=== PATIENT | female | born 1960 | race African-American/Black ===

== ENCOUNTER 2017-04-29 10:23 | Emergency (ER) | payer MEDICAID ==
[~2017-04-29] VITALS: Ht 157.5 cm; Wt 72.6 kg
[2017-04-29] MEDS ORDERED: CLINDAMYCIN HC300 MG ORAL (11:01)
[2017-04-29 11:11] VITALS: BP 112/70
--- NOTE | 2017-04-30 07:15 | Emergency Room Report ---
History of Present Illness General Chief Complaint: Upper Extremity Injury Source: Patient Present Illness HPI Patient presents with complaints of right index fingertip discomfort Patient reports that she had noticed the area was red and mildly swollen tender to touch however earlier she bumped it into a cabinet sure which worsened the discomfort Does not feel that it is broken Patient had her nails done 3 weeks ago Denies any fevers or chills denies any discharge Pain is 4/10 worse with touch tip of the right index finger Allergies: Coded Allergies: PENICILLINS (Verified Allergy, Unknown, 04/29/17) Patient History Past Medical History: see triage record Pertinent Family History: none Reviewed Nursing Documentation: PMH: Agreed, PSxH: Agreed Nursing Documentation-PMH Past Medical History: No Stated History Review of Systems All Other Systems: negative except mentioned in HPI Physical Exam Vital Signs Date Time Temp Pulse Resp B/P Pulse Ox O2 Delivery O2 Flow Rate FiO2 04/29/17 10:29 98.1 56 20 102/67 99 Room Air Sp02 EP Interpretation: reviewed, normal General Appearance: well appearing, no apparent distress Head: normocephalic, atraumatic Eyes: bilateral eye EOMI, bilateral eye PERRL ENT: hearing grossly normal, normal pharynx, TMs + canals normal, uvula midline Neck: full range of motion, supple, no meningismus, no bony tend Musculoskeletal: other - Obvious signs of paronychia involving the nailbed mainly on the medial aspect right index finger, no obvious felon Neurologic: alert, oriented x3, responsive Skin: other - As above Lymphatic: no adenopathy Medical Decision Making Diagnostic Impression: Primary Impression: paronychia ER Course The area in question appears to have infection involving the nailbed in line with early paronychia At this time the area does not appear appropriate for incision Patient will be initially placed on antibiotics and will have outpatient trial Patient is a member of [facility] and was encouraged to followup further if the area does not appear to be improving Last Vital Signs Date Time Temp Pulse Resp B/P Pulse Ox O2 Delivery O2 Flow Rate FiO2 04/29/17 11:11 62 18 112/70 98 Room Air 04/29/17 11:11 98.0 Status: improved Disposition: HOME, SELF-CARE Condition: Stable Scripts Clindamycin Hcl (CLINDAMYCIN HCL) 300 Mg Capsule 300 MG ORAL THREE TIMES A DAY, #21 CAP Prov: ANNIE AMARO D.O. 04/29/17 Referrals: NON PHYSICIAN (PCP) Patient Instructions: Paronychristiano, [id number] Additional Instructions: Patient is provided with the discharge instructions notified to follow up with primary doctor in the next 2-3 days otherwise return to the er with any worsening symptoms. Please note that this report is being documented using DRAGON technology. This can lead to erroneous entry secondary to incorrect interpretation by the dictating instrument. ANNIE AMARO D.O. Apr 30, 2017 07:15
== END 2017-04-29 11:13 | disposition home or self-care (01) ==
LOC: EMR 11:02
DX: L03.011 Cellulitis of right finger (principal); Z88.0 Allergy status to penicillin
CPT/HCPCS: 99283